=== PATIENT | female | born 1995 | race Caucasian/White ===

== ENCOUNTER 2023-08-14 09:13 | Emergency (ER) | payer OTHER ==
[2023-08-14 09:32] VITALS: BP 113/78; PULSE 90; RESP 18; TEMP 98.2; BMI 25.2
[2023-08-14 10:07] LABS: HEMATOCRIT 31.7 % (32.4-45.2); HEMOGLOBIN 10.1 G/dL (10.7-15.3); MCHC 31.9 g/dl (32.0-36.0); MEAN CELL VOLUME 75.1 fl (80-96); PLATELET COUNT 202.2 10^3/uL (134-434); RBC 4.22 10^6/uL (3.60-5.2); RDW 16.3 % (11.6-15.6); WHITE BLOOD COUNT 8.3 10^3/uL (4.0-10.8)
[2023-08-14 10:27] LABS: BILIRUBIN,TOTAL 0.2 mg/dl (0.2-1); CALCIUM 9.4 mg/dl (8.5-10.1); CREATININE 0.4 mg/dl (0.6-1.3); TOT PROT 6.4 g/dl (6.4-8.2)
[2023-08-14 10:38] LABS: AMORP PHOS FEW /hpf (NONE SEEN)
[2023-08-14 12:15] LABS: ANISOCYTOSIS 1+; PLATELET ESTIMATE ADEQUATE
== END 2023-08-14 10:35 | disposition home or self-care (01) ==
LOC: FER 09:13
DX: O20.0 Threatened abortion (principal)
CPT/HCPCS: 36415; 76815; 80053; 81003; 81015; 84702; 85027; 86850; 86900; 86901; 87086; 99284-25